=== PATIENT | male | born 1950 | race Caucasian/White ===

== ENCOUNTER 2017-12-05 07:58 | Day surgery (SDC) | payer MEDICARE, OTHER ==
[2017-12-05] MEDS ORDERED: PROPOFOL 40 ML (09:44)
[2017-12-05] MEDS ORDERED: LIDOCAINE 100 MG SYRINGE (09:44)
== END 2017-12-05 10:24 | disposition home or self-care (01) ==
LOC: GIL 07:58
DX: D12.0 Benign neoplasm of cecum (principal); D17.5 Benign lipomatous neoplasm of intra-abdominal organs; K64.4 Residual hemorrhoidal skin tags; K64.8 Other hemorrhoids; I10 Essential (primary) hypertension; E11.9 Type 2 diabetes mellitus without complications; I25.10 Atherosclerotic heart disease of native coronary artery without angina pectoris
CPT/HCPCS: 45380; 82962; 88305

== ENCOUNTER 2018-09-14 10:30 | Inpatient (IN) | payer MEDICARE, OTHER ==
[2018-09-14 13:49] LABS: ADD MAN DIFF? NO
[2018-09-14 13:52] LABS: WHITE BLOOD COUNT 4.3 10^3/ul (4.8-10.8)
[2018-09-14 13:52] LABS: BASOPHILS % 0.7 % (0.0-2.0); EOSINOPHILS # 0.2 10^3/ul (0.0-0.5); EOSINOPHILS % 4.7 % (0.0-7.0); HEMATOCRIT 37.4 % (42.0-52.0); HEMOGLOBIN 11.8 g/dl (14.0-18.0); LYMPHOCYTES % 23.7 % (15.0-51.0); MEAN CORPUSCULAR HGB CONC 31.6 g/dl (32.0-37.0); MEAN CORPUSCULAR VOLUME 95.2 fl (82.0-101.0); MEAN PLATELET VOLUME 9.7 fl (7.4-10.4); MONOCYTE # 0.5 10^3/ul (0.3-0.9); MONOCYTES % 10.5 % (0.0-11.0); NEUTROPHIL # 2.6 10^3/ul (1.6-7.5); NEUTROPHILS % 60.2 % (39.0-77.0); PLATELET COUNT 191 10^3/UL (140-415); RED BLOOD COUNT 3.93 10^6/ul (4.70-6.10); RED CELL DISTRIBUTION WIDTH 15.9 % (11.5-14.5)
[2018-09-14 14:10] LABS: ANION GAP 8 (5-13); BLOOD UREA NITROGEN 18 mg/dl (7-20); CALCIUM 9.3 mg/dl (8.4-10.2); CARBON DIOXIDE 27 mmol/L (21-31); CHLORIDE 106 mmol/L (97-110); CREATININE 0.75 mg/dl (0.61-1.24); Estimated GFR > 60 mL/min (>60); GLUCOSE 119 mg/dl (70-220); POTASSIUM 4.1 mmol/L (3.5-5.1); SODIUM 141 mmol/L (135-144)
[2018-09-14] MEDS ORDERED: LEVOFLOXACIN 750MG/D5W (PMX) 150 ML IVPB (15:00)
[2018-09-14] MEDS: VANCOMYCIN 1 GM (PMX) 250 ML IVPB (15:00)
[2018-09-14] MEDS ORDERED: ACETAMINOPHEN 325 MG TAB PO (15:30)
[2018-09-14] MEDS ORDERED: HYDROCODONE/APAP (5/325) TAB PO (15:30)
[2018-09-14] MEDS ORDERED: morphine 2 MG INJ IV (15:30)
[2018-09-14] MEDS ORDERED: VANCOMYCIN IV PER PHARMACY XX (15:30)
[2018-09-14] MEDS ORDERED: ONDANSETRON 4 MG INJ IV (15:30)
[2018-09-14] MEDS ORDERED: NACL 0.9% 3 ML SYG IV (15:30)
[2018-09-14] MEDS: SOD CHLORIDE 0.9% 100 ML (17:05)
[2018-09-14] MEDS: IOHEXOL 300MG/ML 150 ML BTL (17:05)
[2018-09-14] MEDS ORDERED: GLUCAGON 1 MG INJ IM (20:30)
[2018-09-14] MEDS ORDERED: GLUCOSE GEL 15 GRAM TUBE BUCCAL (20:30)
[2018-09-14] MEDS ORDERED: GLUCOSE GEL 15 GRAM TUBE PO ×2 (20:30)
[2018-09-14] MEDS ORDERED: DEXTROSE 50% 50 ML SYRINGE IV ×2 (20:30)
[2018-09-14] MEDS: SOD CHLORIDE 0.9% 1,000 ML IV (20:43)
[2018-09-14] MEDS: PIPER-TAZO 3.375 GM IV (PMX) 100 ML IVPB (20:44)
[2018-09-14] MEDS: ATORVASTATIN 40 MG TAB PO (20:45)
[2018-09-14] MEDS: CILOSTAZOL 100 MG TAB PO (20:45)
[2018-09-14] MEDS: TAMSULOSIN (SR) 0.4 MG CAP PO (20:45)
[2018-09-14] MEDS: INSULIN ASPART [NOVOLOG] 3 ML PEN SC (20:45)
[2018-09-14] MEDS: metFORMIN (XR) 500 MG TAB PO ×2 (21:00→22:08)
[2018-09-14] MEDS: VANCOMYCIN HCL 2 GM in SOD CHLORIDE 0.9% 500 ML IVPB (22:05)
[2018-09-14] MEDS: NORTRIPTYLINE 10 MG CAP PO (23:57)
[2018-09-15] MEDS: PIPER-TAZO 3.375 GM IV (PMX) 100 ML IVPB ×4 (03:31→17:51)
[2018-09-15] MEDS: SOD CHLORIDE 0.9% 1,000 ML IV (04:39)
[2018-09-15 05:48] LABS: ADD MAN DIFF? NO
[2018-09-15 05:51] LABS: WHITE BLOOD COUNT 4.9 10^3/ul (4.8-10.8)
[2018-09-15 05:51] LABS: BASOPHILS % 0.8 % (0.0-2.0); EOSINOPHILS # 0.2 10^3/ul (0.0-0.5); EOSINOPHILS % 4.9 % (0.0-7.0); HEMATOCRIT 35.3 % (42.0-52.0); LYMPHOCYTES # 1.1 10^3/ul (0.8-2.9); LYMPHOCYTES % 22.4 % (15.0-51.0); MEAN CORPUSCULAR HEMOGLOBIN 29.6 pg (29.0-33.0); MEAN CORPUSCULAR HGB CONC 31.2 g/dl (32.0-37.0); MEAN CORPUSCULAR VOLUME 95.1 fl (82.0-101.0); MEAN PLATELET VOLUME 10.2 fl (7.4-10.4); MONOCYTE # 0.5 10^3/ul (0.3-0.9); NEUTROPHILS % 60.5 % (39.0-77.0); PLATELET COUNT 201 10^3/UL (140-415); RED BLOOD COUNT 3.71 10^6/ul (4.70-6.10); RED CELL DISTRIBUTION WIDTH 15.7 % (11.5-14.5)
[2018-09-15] MEDS: LEVOTHYROXINE 25 MCG TAB PO (06:34)
[2018-09-15 06:35] LABS: ALANINE AMINOTRANSFERASE 21 IU/L (13-69); ALBUMIN 3.3 g/dl (3.3-4.9); ALBUMIN/GLOBULIN RATIO 1.17; ALKALINE PHOSPHATASE 60 IU/L (42-121); ANION GAP 7 (5-13); ASPARTATE AMINO TRANSFERASE 22 IU/L (15-46); BILIRUBIN,INDIRECT 1.1 mg/dl (0-1.1); BILIRUBIN,TOTAL 1.1 mg/dl (0.2-1.3); BLOOD UREA NITROGEN 19 mg/dl (7-20); CALCIUM 8.9 mg/dl (8.4-10.2); CARBON DIOXIDE 27 mmol/L (21-31); CHLORIDE 106 mmol/L (97-110); CHOL/HDL RATIO 2.2 RATIO; CHOLESTEROL 94 mg/dl (100-200); CREATININE 0.84 mg/dl (0.61-1.24); Estimated GFR > 60 mL/min (>60); GLUCOSE 126 mg/dl (70-220); HDL CHOLESTEROL 41 mg/dl (31-75); LDL CHOLESTEROL,CALCULATED 43 mg/dl; MAGNESIUM 1.6 mg/dl (1.7-2.5); POTASSIUM 3.9 mmol/L (3.5-5.1); SODIUM 140 mmol/L (135-144); TOTAL PROTEIN 6.1 g/dl (6.1-8.1); TRIGLYCERIDES 51 mg/dl (0-149)
[2018-09-15] MEDS: INSULIN ASPART [NOVOLOG] 3 ML PEN SC ×4 (07:58→21:00)
[2018-09-15] MEDS ORDERED: VANCOMYCIN HCL 1.5 GM in SOD CHLORIDE 0.9% 250 ML IVPB (08:00)
[2018-09-15 08:06] LABS: HEMOGLOBIN A1C 6.3 % (0-5.9)
[2018-09-15] MEDS: METOPROLOL (XL) 50 MG TAB PO (08:29)
[2018-09-15] MEDS: HYDROCHLOROTHIAZIDE 25 MG TAB PO (08:29)
[2018-09-15] MEDS: LOSARTAN 50 MG TAB PO (08:30)
[2018-09-15] MEDS: CILOSTAZOL 100 MG TAB PO ×2 (08:30→21:10)
[2018-09-15] MEDS: AMLODIPINE 10 MG TAB PO (08:30)
[2018-09-15] MEDS: ASPIRIN (EC) 81 MG TAB PO (08:30)
[2018-09-15] MEDS: metFORMIN (XR) 500 MG TAB PO ×2 (08:31→21:00)
[2018-09-15] MEDS: LINAGLIPTIN 5 MG TABLET PO (08:31)
[2018-09-15] MEDS: VANCOMYCIN HCL 1.5 GM in SOD CHLORIDE 0.9% 250 ML IVPB ×2 (10:29→21:10)
[2018-09-15] MEDS: TAMSULOSIN (SR) 0.4 MG CAP PO (21:10)
[2018-09-15] MEDS: NORTRIPTYLINE 10 MG CAP PO (21:10)
[2018-09-15] MEDS: ATORVASTATIN 40 MG TAB PO (21:10)
[2018-09-16] MEDS: PIPER-TAZO 3.375 GM IV (PMX) 100 ML IVPB ×4 (00:47→18:10)
[2018-09-16 05:31] LABS: ADD MAN DIFF? NO
[2018-09-16 05:33] LABS: BASOPHILS % 0.9 % (0.0-2.0); EOSINOPHILS # 0.3 10^3/ul (0.0-0.5); EOSINOPHILS % 5.8 % (0.0-7.0); HEMATOCRIT 35.2 % (42.0-52.0); HEMOGLOBIN 11.1 g/dl (14.0-18.0); LYMPHOCYTES # 1.1 10^3/ul (0.8-2.9); LYMPHOCYTES % 23.5 % (15.0-51.0); MEAN CORPUSCULAR HEMOGLOBIN 29.7 pg (29.0-33.0); MEAN CORPUSCULAR HGB CONC 31.5 g/dl (32.0-37.0); MEAN CORPUSCULAR VOLUME 94.1 fl (82.0-101.0); MEAN PLATELET VOLUME 9.8 fl (7.4-10.4); MONOCYTE # 0.5 10^3/ul (0.3-0.9); MONOCYTES % 11.6 % (0.0-11.0); NEUTROPHIL # 2.7 10^3/ul (1.6-7.5); PLATELET COUNT 195 10^3/UL (140-415); RED BLOOD COUNT 3.74 10^6/ul (4.70-6.10); RED CELL DISTRIBUTION WIDTH 15.9 % (11.5-14.5)
[2018-09-16 05:33] LABS: WHITE BLOOD COUNT 4.6 10^3/ul (4.8-10.8)
[2018-09-16 06:02] LABS: ANION GAP 7 (5-13); BLOOD UREA NITROGEN 22 mg/dl (7-20); CALCIUM 8.7 mg/dl (8.4-10.2); CARBON DIOXIDE 26 mmol/L (21-31); CHLORIDE 107 mmol/L (97-110); CREATININE 1.02 mg/dl (0.61-1.24); Estimated GFR > 60 mL/min (>60); GLUCOSE 127 mg/dl (70-220); MAGNESIUM 1.6 mg/dl (1.7-2.5); PHOSPHORUS 4.3 mg/dl (2.5-4.9); POTASSIUM 3.9 mmol/L (3.5-5.1); SODIUM 140 mmol/L (135-144)
[2018-09-16] MEDS: LEVOTHYROXINE 25 MCG TAB PO (06:29)
[2018-09-16] MEDS: INSULIN ASPART [NOVOLOG] 3 ML PEN SC ×4 (08:00→21:00)
[2018-09-16] MEDS: metFORMIN (XR) 500 MG TAB PO ×2 (08:44→21:00)
[2018-09-16] MEDS: CILOSTAZOL 100 MG TAB PO ×2 (08:47→20:59)
[2018-09-16] MEDS: LOSARTAN 50 MG TAB PO (08:47)
[2018-09-16] MEDS: HYDROCHLOROTHIAZIDE 25 MG TAB PO (08:48)
[2018-09-16] MEDS: ASPIRIN (EC) 81 MG TAB PO (08:48)
[2018-09-16] MEDS: AMLODIPINE 10 MG TAB PO (08:49)
[2018-09-16] MEDS: METOPROLOL (XL) 50 MG TAB PO (08:49)
[2018-09-16] MEDS: LINAGLIPTIN 5 MG TABLET PO ×2 (08:50→13:29)
[2018-09-16 09:55] LABS: VANCOMYCIN,TROUGH 22.1 ug/ml (10.0-20.0)
[2018-09-16] MEDS: VANCOMYCIN HCL 1.5 GM in SOD CHLORIDE 0.9% 250 ML IVPB ×2 (10:00→21:40)
[2018-09-16] MEDS: MAGNESIUM OXIDE 400 MG TAB PO (12:38)
[2018-09-16] MEDS: NORTRIPTYLINE 10 MG CAP PO (20:59)
[2018-09-16] MEDS: TAMSULOSIN (SR) 0.4 MG CAP PO (20:59)
[2018-09-16] MEDS: ATORVASTATIN 40 MG TAB PO (20:59)
[2018-09-17] MEDS: PIPER-TAZO 3.375 GM IV (PMX) 100 ML IVPB ×4 (00:52→17:25)
[2018-09-17 05:23] LABS: ADD MAN DIFF? NO
[2018-09-17 05:30] LABS: BASOPHILS % 0.9 % (0.0-2.0); EOSINOPHILS # 0.2 10^3/ul (0.0-0.5); HEMATOCRIT 36.1 % (42.0-52.0); HEMOGLOBIN 11.4 g/dl (14.0-18.0); LYMPHOCYTES # 1.2 10^3/ul (0.8-2.9); LYMPHOCYTES % 26.6 % (15.0-51.0); MEAN CORPUSCULAR HEMOGLOBIN 29.7 pg (29.0-33.0); MEAN CORPUSCULAR HGB CONC 31.6 g/dl (32.0-37.0); MEAN PLATELET VOLUME 10.1 fl (7.4-10.4); MONOCYTE # 0.5 10^3/ul (0.3-0.9); NEUTROPHIL # 2.5 10^3/ul (1.6-7.5); PLATELET COUNT 214 10^3/UL (140-415); RED BLOOD COUNT 3.84 10^6/ul (4.70-6.10); RED CELL DISTRIBUTION WIDTH 15.7 % (11.5-14.5)
[2018-09-17 05:30] LABS: WHITE BLOOD COUNT 4.4 10^3/ul (4.8-10.8)
[2018-09-17 05:50] LABS: ANION GAP 7 (5-13); BLOOD UREA NITROGEN 21 mg/dl (7-20); CARBON DIOXIDE 27 mmol/L (21-31); CHLORIDE 105 mmol/L (97-110); CREATININE 0.89 mg/dl (0.61-1.24); Estimated GFR > 60 mL/min (>60); GLUCOSE 135 mg/dl (70-220); MAGNESIUM 1.8 mg/dl (1.7-2.5); PHOSPHORUS 3.6 mg/dl (2.5-4.9); POTASSIUM 3.9 mmol/L (3.5-5.1); SODIUM 139 mmol/L (135-144)
[2018-09-17] MEDS: LEVOTHYROXINE 25 MCG TAB PO (06:09)
[2018-09-17] MEDS: INSULIN ASPART [NOVOLOG] 3 ML PEN SC ×4 (08:00→21:00)
[2018-09-17] MEDS: metFORMIN (XR) 500 MG TAB PO ×2 (08:39→21:12)
[2018-09-17] MEDS: AMLODIPINE 10 MG TAB PO (08:39)
[2018-09-17] MEDS: LINAGLIPTIN 5 MG TABLET PO (08:39)
[2018-09-17] MEDS: CILOSTAZOL 100 MG TAB PO ×2 (08:40→21:12)
[2018-09-17] MEDS: METOPROLOL (XL) 50 MG TAB PO (08:40)
[2018-09-17] MEDS: LOSARTAN 50 MG TAB PO (08:40)
[2018-09-17] MEDS: ASPIRIN (EC) 81 MG TAB PO (08:40)
[2018-09-17] MEDS: HYDROCHLOROTHIAZIDE 25 MG TAB PO (08:40)
[2018-09-17] MEDS: NYSTATIN 30 GM POWDER BTL TOP ×2 (15:30→21:06)
[2018-09-17] MEDS: VANCOMYCIN HCL 1.5 GM in SOD CHLORIDE 0.9% 250 ML IVPB (21:08)
[2018-09-17] MEDS: ATORVASTATIN 40 MG TAB PO (21:12)
[2018-09-17] MEDS: NORTRIPTYLINE 10 MG CAP PO (21:12)
[2018-09-17] MEDS: TAMSULOSIN (SR) 0.4 MG CAP PO (21:12)
[2018-09-18] MEDS: PIPER-TAZO 3.375 GM IV (PMX) 100 ML IVPB ×4 (00:41→18:05)
[2018-09-18 05:41] LABS: ADD MAN DIFF? NO
[2018-09-18 05:43] LABS: WHITE BLOOD COUNT 4.1 10^3/ul (4.8-10.8)
[2018-09-18 05:43] LABS: EOSINOPHILS # 0.2 10^3/ul (0.0-0.5); EOSINOPHILS % 5.7 % (0.0-7.0); HEMATOCRIT 36.8 % (42.0-52.0); HEMOGLOBIN 11.6 g/dl (14.0-18.0); LYMPHOCYTES % 24.9 % (15.0-51.0); MEAN CORPUSCULAR HEMOGLOBIN 29.4 pg (29.0-33.0); MEAN CORPUSCULAR HGB CONC 31.5 g/dl (32.0-37.0); MEAN CORPUSCULAR VOLUME 93.4 fl (82.0-101.0); MONOCYTE # 0.4 10^3/ul (0.3-0.9); MONOCYTES % 10.4 % (0.0-11.0); NEUTROPHIL # 2.3 10^3/ul (1.6-7.5); NEUTROPHILS % 57.5 % (39.0-77.0); PLATELET COUNT 220 10^3/UL (140-415); RED BLOOD COUNT 3.94 10^6/ul (4.70-6.10); RED CELL DISTRIBUTION WIDTH 15.7 % (11.5-14.5)
[2018-09-18 06:15] LABS: ANION GAP 8 (5-13); BLOOD UREA NITROGEN 21 mg/dl (7-20); CALCIUM 9.1 mg/dl (8.4-10.2); CARBON DIOXIDE 26 mmol/L (21-31); CHLORIDE 106 mmol/L (97-110); CREATININE 0.88 mg/dl (0.61-1.24); Estimated GFR > 60 mL/min (>60); GLUCOSE 123 mg/dl (70-220); MAGNESIUM 1.8 mg/dl (1.7-2.5); PHOSPHORUS 3.7 mg/dl (2.5-4.9); SODIUM 140 mmol/L (135-144)
[2018-09-18] MEDS: LEVOTHYROXINE 25 MCG TAB PO (06:22)
[2018-09-18] MEDS: INSULIN ASPART [NOVOLOG] 3 ML PEN SC ×4 (08:00→20:07)
[2018-09-18] MEDS: metFORMIN (XR) 500 MG TAB PO ×2 (08:21→20:05)
[2018-09-18] MEDS: CILOSTAZOL 100 MG TAB PO ×2 (08:22→20:05)
[2018-09-18] MEDS: HYDROCHLOROTHIAZIDE 25 MG TAB PO (08:22)
[2018-09-18] MEDS: LINAGLIPTIN 5 MG TABLET PO (08:22)
[2018-09-18] MEDS: ASPIRIN (EC) 81 MG TAB PO (08:22)
[2018-09-18] MEDS: LOSARTAN 50 MG TAB PO (08:23)
[2018-09-18] MEDS: METOPROLOL (XL) 50 MG TAB PO (08:23)
[2018-09-18] MEDS: AMLODIPINE 10 MG TAB PO (08:23)
[2018-09-18] MEDS: NYSTATIN 30 GM POWDER BTL TOP ×2 (11:59→20:06)
[2018-09-18] MEDS: ATORVASTATIN 40 MG TAB PO (20:05)
[2018-09-18] MEDS: NORTRIPTYLINE 10 MG CAP PO (20:06)
[2018-09-18] MEDS: TAMSULOSIN (SR) 0.4 MG CAP PO (20:06)
[2018-09-18] MEDS: VANCOMYCIN HCL 1.5 GM in SOD CHLORIDE 0.9% 250 ML IVPB (21:15)
[2018-09-19] MEDS: PIPER-TAZO 3.375 GM IV (PMX) 100 ML IVPB ×4 (00:33→17:34)
[2018-09-19 05:23] LABS: ADD MAN DIFF? NO
[2018-09-19 05:30] LABS: BASOPHIL # 0.1 10^3/ul (0.0-0.1); BASOPHILS % 1.3 % (0.0-2.0); EOSINOPHILS # 0.2 10^3/ul (0.0-0.5); EOSINOPHILS % 4.6 % (0.0-7.0); HEMATOCRIT 36.8 % (42.0-52.0); HEMOGLOBIN 11.4 g/dl (14.0-18.0); LYMPHOCYTES # 1.1 10^3/ul (0.8-2.9); MEAN CORPUSCULAR HEMOGLOBIN 29.3 pg (29.0-33.0); MEAN CORPUSCULAR VOLUME 94.6 fl (82.0-101.0); MONOCYTE # 0.4 10^3/ul (0.3-0.9); MONOCYTES % 10.7 % (0.0-11.0); NEUTROPHIL # 2.2 10^3/ul (1.6-7.5); NEUTROPHILS % 56.1 % (39.0-77.0); PLATELET COUNT 206 10^3/UL (140-415); RED BLOOD COUNT 3.89 10^6/ul (4.70-6.10); RED CELL DISTRIBUTION WIDTH 15.6 % (11.5-14.5)
[2018-09-19 05:30] LABS: WHITE BLOOD COUNT 3.9 10^3/ul (4.8-10.8)
[2018-09-19 05:47] LABS: ANION GAP 7 (5-13); BLOOD UREA NITROGEN 21 mg/dl (7-20); CALCIUM 9.1 mg/dl (8.4-10.2); CARBON DIOXIDE 26 mmol/L (21-31); CHLORIDE 107 mmol/L (97-110); CREATININE 0.95 mg/dl (0.61-1.24); Estimated GFR > 60 mL/min (>60); GLUCOSE 122 mg/dl (70-220); MAGNESIUM 1.8 mg/dl (1.7-2.5); PHOSPHORUS 3.3 mg/dl (2.5-4.9); POTASSIUM 3.8 mmol/L (3.5-5.1); SODIUM 140 mmol/L (135-144)
[2018-09-19] MEDS: LEVOTHYROXINE 25 MCG TAB PO (06:08)
[2018-09-19] MEDS: INSULIN ASPART [NOVOLOG] 3 ML PEN SC ×4 (07:50→21:00)
[2018-09-19] MEDS: LINAGLIPTIN 5 MG TABLET PO (08:22)
[2018-09-19] MEDS: ASPIRIN (EC) 81 MG TAB PO (08:22)
[2018-09-19] MEDS: metFORMIN (XR) 500 MG TAB PO ×2 (08:22→21:27)
[2018-09-19] MEDS: CILOSTAZOL 100 MG TAB PO ×2 (08:23→21:28)
[2018-09-19] MEDS: LOSARTAN 50 MG TAB PO (08:24)
[2018-09-19] MEDS: AMLODIPINE 10 MG TAB PO (08:24)
[2018-09-19] MEDS: HYDROCHLOROTHIAZIDE 25 MG TAB PO (08:25)
[2018-09-19] MEDS: METOPROLOL (XL) 50 MG TAB PO (08:26)
[2018-09-19] MEDS: NYSTATIN 30 GM POWDER BTL TOP ×2 (08:31→21:33)
[2018-09-19 20:38] LABS: VANCOMYCIN,TROUGH 10.2 ug/ml (10.0-20.0)
[2018-09-19] MEDS: TAMSULOSIN (SR) 0.4 MG CAP PO (21:28)
[2018-09-19] MEDS: ATORVASTATIN 40 MG TAB PO (21:28)
[2018-09-19] MEDS: NORTRIPTYLINE 10 MG CAP PO (21:28)
[2018-09-19] MEDS: VANCOMYCIN HCL 1.5 GM in SOD CHLORIDE 0.9% 250 ML IVPB (21:32)
[2018-09-20] MEDS: PIPER-TAZO 3.375 GM IV (PMX) 100 ML IVPB ×2 (00:14→05:39)
[2018-09-20] MEDS: LEVOTHYROXINE 25 MCG TAB PO (05:40)
[2018-09-20 06:10] LABS: ADD MAN DIFF? NO
[2018-09-20 06:29] LABS: WHITE BLOOD COUNT 4.3 10^3/ul (4.8-10.8)
[2018-09-20 06:29] LABS: BASOPHIL # 0.1 10^3/ul (0.0-0.1); BASOPHILS % 1.2 % (0.0-2.0); EOSINOPHILS # 0.2 10^3/ul (0.0-0.5); EOSINOPHILS % 4.8 % (0.0-7.0); HEMATOCRIT 37.5 % (42.0-52.0); HEMOGLOBIN 11.7 g/dl (14.0-18.0); LYMPHOCYTES % 23.1 % (15.0-51.0); MEAN CORPUSCULAR HEMOGLOBIN 29.3 pg (29.0-33.0); MEAN CORPUSCULAR HGB CONC 31.2 g/dl (32.0-37.0); MEAN CORPUSCULAR VOLUME 93.8 fl (82.0-101.0); MEAN PLATELET VOLUME 9.9 fl (7.4-10.4); MONOCYTE # 0.5 10^3/ul (0.3-0.9); MONOCYTES % 10.9 % (0.0-11.0); NEUTROPHIL # 2.6 10^3/ul (1.6-7.5); NEUTROPHILS % 59.5 % (39.0-77.0); PLATELET COUNT 225 10^3/UL (140-415); RED CELL DISTRIBUTION WIDTH 15.8 % (11.5-14.5)
[2018-09-20 06:36] LABS: ANION GAP 8 (5-13); BLOOD UREA NITROGEN 23 mg/dl (7-20); CALCIUM 9.2 mg/dl (8.4-10.2); CARBON DIOXIDE 25 mmol/L (21-31); CHLORIDE 107 mmol/L (97-110); Estimated GFR > 60 mL/min (>60); GLUCOSE 102 mg/dl (70-220); MAGNESIUM 1.8 mg/dl (1.7-2.5); PHOSPHORUS 3.7 mg/dl (2.5-4.9); POTASSIUM 4.2 mmol/L (3.5-5.1); SODIUM 140 mmol/L (135-144)
[2018-09-20] MEDS: INSULIN ASPART [NOVOLOG] 3 ML PEN SC ×2 (07:56→12:00)
[2018-09-20] MEDS: metFORMIN (XR) 500 MG TAB PO (08:27)
[2018-09-20] MEDS: HYDROCHLOROTHIAZIDE 25 MG TAB PO (08:28)
[2018-09-20] MEDS: AMLODIPINE 10 MG TAB PO (08:28)
[2018-09-20] MEDS: ASPIRIN (EC) 81 MG TAB PO (08:28)
[2018-09-20] MEDS: LINAGLIPTIN 5 MG TABLET PO (08:28)
[2018-09-20] MEDS: CILOSTAZOL 100 MG TAB PO (08:28)
[2018-09-20] MEDS: LOSARTAN 50 MG TAB PO (08:28)
[2018-09-20] MEDS: NYSTATIN 30 GM POWDER BTL TOP (08:29)
[2018-09-20] MEDS: METOPROLOL (XL) 50 MG TAB PO (08:29)
[2018-09-20] MEDS ORDERED: VANCOMYCIN 1 GM 250 ML IVPB (09:00)
[2018-09-20] MEDS: CIPROFLOXACIN 500 MG TAB PO (12:23)
[2018-09-20] MEDS: TRIMETHOPRIM/SULFAMETHOX (DS) TAB PO (12:23)
[2018-09-20] MEDS ORDERED: VANCOMYCIN HCL 1.5 GM in SOD CHLORIDE 0.9% 250 ML IVPB (21:00)
== END 2018-09-20 13:01 | disposition home or self-care (01) | DRG 600 ==
LOC: E/R 10:30 → 2NE 15:07
DX: N61.0 Mastitis without abscess (principal); Z68.43 Body mass index [BMI] 50.0-59.9, adult; L03.113 Cellulitis of right upper limb; I25.10 Atherosclerotic heart disease of native coronary artery without angina pectoris; Z95.1 Presence of aortocoronary bypass graft; E11.9 Type 2 diabetes mellitus without complications; E03.9 Hypothyroidism, unspecified; F39 Unspecified mood [affective] disorder; E78.5 Hyperlipidemia, unspecified; I10 Essential (primary) hypertension; N40.0 Benign prostatic hyperplasia without lower urinary tract symptoms
CPT/HCPCS: 36415; 71260; 73200; 80048; 80053; 80061; 80202; 82962; 83036; 83735; 84100; 84443; 85025; 87040-91; 87070; 87081; 93971; 96374; 99285-25

== ENCOUNTER → 2018-12-22 | Outpatient (CLI) | payer MEDICARE, OTHER ==
[2018-12-22 13:08] LABS: AADO2 Arterial 31.2 mmHg (7.0-24.0); Arterial Base Excess -0.9 mmol/L (-3.0-3); Arterial Blood Gas Oxygen Sat 94.5 mmHG (95.0-98.0); Arterial COHb 0.3 % (0.0-3.0); Arterial Fraction of Oxyhgb 93.9 % (93.0-99.0); Arterial HCO3 23.8 mmol/L (22.0-26.0); Arterial MetHb 0.3 % (0.0-1.5); Arterial pCO2 39.7 mmhg (35-45); MODE ROOM AIR; Site LB
== END | disposition home or self-care (01) ==
LOC: PUL 12:20
DX: R06.02 Shortness of breath (principal); E03.9 Hypothyroidism, unspecified
CPT/HCPCS: 36600; 82803; 84443